=== PATIENT | female | born 1995 | race Two or more races ===

== ENCOUNTER 2025-01-15 08:50 | Emergency (ER) | payer MEDICAID, OTHER ==
[~2025-01-15] VITALS: Ht 162.6 cm; Wt 55.3 kg
[2025-01-15 09:18] VITALS: BP 126/76; PULSE 86; RESP 16; TEMP 98.6; O2SAT 96
[2025-01-15] MEDS: KETOROLAC TROMETH 60MG/2ML VIAL IM ONE (09:30)
--- NOTE | 2025-01-15 09:32 | ED.PDOC ---
Musculoskeletal HPI Comments A 29 YEAR OLD FE/MALE PRESENTS TO THE ED WITH COMPLAINT OF RIGHT UPPER THIGH PAIN. PATIENT STATES SHE HAD A NORMAL VAGINAL DELIVERY 6 DAYS AGO WHERE SHE STRAINED FOR SEVERAL HOURS. PATIENT REPORTS SHE HAS BEEN EXPERIENCING RIGHT UPPER THIGH PAIN THAT IS WORSE WITH MOVEMENT AND ONLY HAPPENS WHEN WALKING. RESTING DECREASES RIGHT UPPER THIGH PAIN. PATIENT FEELS LIKE SHE MAY HAVE STRAINED A MUSCLE. PATIENT DENIES DYSURIA, HEMATURIA, FEVER, CHILLS, SHORTNESS OF BREATH, CHEST PAIN, ABDOMINAL PAIN, NAUSEA, VOMITING, HEADACHE, OR OTHER COMPLAINTS. NO OTHER SYMPTOMS OR MODIFYING FACTORS AT THIS TIME. PATIENT IS ALERT, ORIENTED X 4, AND HAS STEADY GAIT. Chief Complaint: Lower Extremity Time Seen by MD: 09:05 Reviewed Notes: Nurses Notes, Medications, Allergies Information Source: Patient Mode of Arrival: Ambulatory Location: Right Extremity Location: Thigh (UPPER THIGH) Timing: Days Prehospital treatment: None Severity: Moderate Able to Move Extremity: Yes Bear Weight: Fully Pain: Moderate Mechanism: Other (PUSHING AND STRAINING DURING VAGINAL DELIVERY) Circumstances: Other (AFTER VAGINAL DELIVERY) Onset of Symptoms: Spontaneous Symptoms: Pain DVT Risk Factors: NONE Last Tetanus: UTD, Unknown Associated signs and symptoms: Thigh pain Past Medical History PAST MEDICAL HISTORY: Denies Surgical History: Denies all surgeries RUBBER STAMP DIES INSPECTOR History: No Pertinent RUBBER STAMP DIES INSPECTOR History Family History Family History: Reviewed,noncontributory to illness Social History Smoker: Non-Smoker Alcohol: Denies ETOH Use Drugs: Denies Drug Use Lives In: Home Constitutional: denies: chills, diaphoresis, fatigue, fever, malaise, sweats, weakness, others EENTM: denies: blurred vision, double vision, ear bleeding, ear discharge, ear drainage, ear pain, ear ringing, eye pain, eye redness, hearing loss, mouth pain, mouth swelling, nasal discharge, nose bleeding, nose congestion, nose pain, photophobia, tearing, throat pain, throat swelling, voice changes, others Respiratory: denies: cough, hemoptysis, orthopnea, SOB at rest, shortness of breath, SOB with excertion, stridor, wheezing, others Cardiovascular: denies: chest pain, dizzy spells, diaphoresis, Dyspnea on exertion, edema, irregular heart beat, left arm pain, lightheadedness, palpitations, PND, syncope, others Gastrointestinal: denies: abdomen distended, abdominal pain, blood streaked bowels, constipated, diarrhea, dysphagia, difficulty swallowing, hematemesis, melena, nausea, poor appetite, poor fluid intake, rectal bleeding, rectal pain, vomiting, others Genitourinary: denies: abnormal vagina bleeding, burning, dyspareunia, dysuria, flank pain, frequency, hematuria, incontinence, pain, , vagina discharge, urgency, others Neurological: denies: dizziness, fainting, headache, left sided numbness, left sided weakness, numbness, paresthesia, pre-existing deficit, right sided numbness, right sided weakness, seizure, speech problems, tingling, tremors, weakness, others Musculoskeletal: reports: muscle pain, others (RIGHT UPPER THIGH PAIN); denies: back pain, gout, joint pain, joint swelling, muscle stiffness, neck pain Integumetry: denies: bruises, change in color, change in hair/nails, dryness, laceration, lesions, lumps, rash, wounds, others Allergic/Immunocompromised: denies: Difficulty Healing, Frequent Infections, Hives, Itching, others Hematologic/Lymphatic: denies: anemia, blood clots, easy bleeding, easy bruising, swollen glands, others Endocrine: denies: excessive hunger, excessive sweating, excessive thirst, excessive urination, flushing, intolerance to cold, intolerance to heat, unexplained weight gain, unexplained weight loss, others Psychiatric: denies: anxiety, bipolar disorder, depression, hopeless, panic disorder, schizophrenia, sleepless, suicidal, others All Other Systems: Reviewed and Negative Physical Exam General Appearance: No Apparent Distress, Normal HEENT: Normal ENT Inspection, PERRL/EOMI, Pharynx Normal, TMs Normal Neck: Full Range of Motion, Non-Tender, Normal, Normal Inspection Respiratory: Chest Non-Tender, Lungs Clear, No Accessory Muscle Use, No Respiratory Distress, Normal Breath Sounds Cardiovascular: No Edema, No JVD, No Murmur, No Gallop, Normal Peripheral Pulses, Regular Rate/Rhythm Breast Exam: Deferred Gastrointestinal: No Organomegaly, Non Tender, No Pulsatile Mass, Normal Bowel Sounds, Soft Genitalia: Deferred Pelvic: Deferred Rectal: Deferred Extremities: Decreased range of motion (SLIGHYLY. ), No calf tenderness, Normal capillary refill, Normal inspection, No pedal edema, Tender (WITH MUSCLE TIGHTNESS ON RIGHT UPPER THIGH, NO REDNESS, SWELLING AND DVT SIGNS. ) Musculoskeletal : Apperance: Normal Neurologic: Alert, accounts receivable bookkeeper II-XII nml as Tested, No Motor Deficits, Normal Affect, Normal Mood, No Sensory Deficits Cerebellar Function: Normal Reflexes: Normal Skin: Dry, Normal Color, Warm Peripheral Pulses: 2+ carotid (R), 2+ carotid (L) Lymphatic: No Adenopathy Was a procedure done? Was a procedure done?: No Differential Diagnosis EXT Differential Diagnosis: Sprain, Contusion, Strain Other Differential Diagnosis MUSCLE SPASM X-Ray, Labs, Meds, VS Vital Signs Date Time Temp Pulse Resp B/P (MAP) Pulse Ox O2 Delivery O2 Flow Rate FiO2 01/15/25 09:18 86 16 96 Room Air 01/15/25 09:18 98.6 86 16 126/76 (93) 96 98.6 01/15/25 09:01 98.3 87 16 121/76 (91) 99 98.3 Current Medications Medications (Trade) Dose Ordered Sig/Kisha Route Start Time Stop Time Status Last Admin Ketorolac Tromethamine (Toradol Injection) 60 mg ONCE ONCE IM 01/15/25 09:30 01/15/25 09:31 DC 01/15/25 09:30 X-Ray, Labs, Meds, VS Comment EXTERNAL MEDICAL RECORDS REVIEWED: [NONE] INDEPENDENT HISTORIANS: [NONE] SOCIAL DETERMINANTS OF HEALTH: [NONE] LABS ORDERED: NONE REVIEWED AND INTERPRETED RESULTS: NONE IMAGING ORDERED: NONE TREATMENTS ORDERED: TORADOL 60 MG IM. PT STATES SHE FEELS BETTER AFTER PAIN MEDICATION. PROCEDURES PERFORMED: NONE CRITICAL CARE TIME: NONE I HAVE DISCUSSED THE PATIENT WITH THE ATTENDING PHYSICIAN DR. ALLAN AND HE AGREES WITH THE PATIENT'S PLAN OF CARE AND DISPOSITION. BASED ON HISTORY OF PRESENT ILLNESS, AND PHYSICAL EXAM, PATIENT WILL BE DISCHA RGED HOME. DISCUSSED PLAN FOR DISCHARGE HOME WITH RX [NAPROXEN 500MG AND ROBAXIN]. MEDICATION WARNINGS GIVEN. SHARED DECISION MAKING: PATIENT INSTRUCTED TO FOLLOW UP WITH PRIMARY CARE PROVIDER IN 1-2 DAYS FOR RE-EVALUATION OF SYMPTOMS. PATIENT VERBALIZES UNDERSTANDING TO RETURN TO ED FOR NEW OR WORSENING SYMPTOMS OR IF FOLLOW UP WITH PCP CANNOT BE OBTAINED. PATIENT FEELS COMFORTABLE GOING HOME AT THIS TIME. ALL QUESTIONS ADDRESSED AT TIME OF DISCHARGE. Time of 1ST Reevaluation: 10:00 Reevaluation 1ST: Improved Patient Education/Counseling: Diagnosis, Treatment, Need For Follow Up Family Education/Counseling: Diagnosis, Treatment, Need For Follow Up Medical Screening: No EMC Exist At This Time Departure 1 Departure Time of Disposition: 10:00 Impression: Primary Impression: Muscle strain of right thigh Qualified Codes: S76.911A - Strain of unspecified muscles, fascia and tendons at thigh level, right thigh, initial encounter Disposition: HOME / SELF CARE / HOMELESS Condition: Stable Additional Instructions: FOLLOW-UP WITH PCP IN 1 TO 2 DAYS. TAKE MEDICATIONS PRESCRIBED. RETURN TO ED FOR ANY NEW OR WORSENING SYMPTOMS. e-Prescriptions Methocarbamol (Methocarbamol) 500 Mg Tab 500 MG PO BID, #20 TAB Prov: RACHNA STEARNS 01/15/25 Naproxen (Naproxen) 500 Mg Tab 500 MG PO BID, #30 TAB Prov: RACHNA STEARNS 01/15/25 Discharged With: Self, Relative Critical Care Note Critical Care Time?: No Stability Stability form required: No I personally scribed for RACHNA STEARNS ([email or web address]) on 01/15/25 at 09:32. Electronically submitted by Js Callaway ([email or web address]). RACHNA STEARNS Jan 15, 2025 09:32
[2025-01-15] MEDS ORDERED: NAPR-746 PO (09:48)
[2025-01-15] MEDS ORDERED: METH-1181 PO (09:48)
== END 2025-01-15 10:01 | disposition home or self-care (01) ==
LOC: ER 08:50
DX: S76.811A Strain of other specified muscles, fascia and tendons at thigh level, right thigh, initial encounter (principal); X58.XXXA Exposure to other specified factors, initial encounter; Y93.01 Activity, walking, marching and hiking; Y92.89 Other specified places as the place of occurrence of the external cause; Y99.8 Other external cause status
CPT/HCPCS: 96372; 99283; J1885